=== PATIENT | male | born 1945 | race African-American/Black ===

== ENCOUNTER 2019-02-24 08:02 | Inpatient (IN) ==
[2019-02-24] MEDS ORDERED: SODIUM CHLORIDE 0.9% 1,000 ML IV STA ×4 (08:07→11:48)
[2019-02-24] MEDS ORDERED: ROCURONIUM 100 MG/10 ML VIAL IV ONE (08:20)
[2019-02-24] MEDS ORDERED: ETOMIDATE 20 MG/10 ML VIAL IV ONE (08:20)
[2019-02-24] MEDS ORDERED: DILTIAZEM 50 MG/10 ML VIAL IV STA (08:21)
[2019-02-24 08:24] LABS: Basophils # 0.1 10*3/uL (0.0-0.2); Basophils % 0.2 % (0.0-0.8); Eosinophils % 0.1 % (0.00-10.9); Hematocrit 41.7 VOL% (42.0-52.0); Immature Granulocytes % 0.8 %; Lymphocytes # 0.9 10*3/uL (1.4-4.0); Lymphocytes % 3.7 % (21.2-54.2); Mean Corpuscular HGB Conc 31.2 GM/DL (32-36); Mean Corpuscular Volume 78.7 FL (87-102); Monocytes % 7.8 % (1.7-12.7); Neutrophils % 87.4 % (38.7-73.9); Platelet Count 451 T/CUMM (130-400); Red Cell Distribution Width 21.2 % (9.3-17.3); White Blood Count 24.2 T/CUMM (4-12)
[2019-02-24] MEDS ORDERED: PIPERACILLIN/TAZOBACTAM 3,375 MG in SODIUM CHLORIDE 0.9% 100 ML IV STA (08:26)
[2019-02-24] MEDS ORDERED: DILTIAZEM INJ 100 MG in SODIUM CHLORIDE 0.9% 100 ML IV SCH (08:30)
[2019-02-24 08:32] LABS: INR 1.2; PT Patient Result 12.5 SECS; Partial Thromboplastin Time 21.5 SECS (0-40)
[2019-02-24 08:47] LABS: Band Neutrophils 2 % (0-10); Hypochromasia 1+; Lymphocytes 2 % (20-55); Platelet Estimate Increased; Segmented Neutrophils 87 % (50-85); Total Cells Counted 100
[2019-02-24 08:48] LABS: Microcytosis Slight
[2019-02-24 09:25] LABS: ABG Base Excess 2.4 MMOL/L (-2.5-2.5); ABG HCO3 26.5 MMOL/L (20-26); ABG Oxygen Saturation 99.2 % (95-100); ABG PCO2 38.2 MM HG (35-48); ABG PH 7.447 (7.35-7.45); ABG TCO2 23.2 MMOL/L (23-27)
[2019-02-24 09:29] LABS: Alanine Aminotransferase 121 U/L (16-61); Albumin 2.9 G/DL (3.4-5.0); Alkaline Phosphatase 112 U/L (45-117); Aspartate Amino Transferase 75 U/L (0-37); Blood Urea Nitrogen 60 MG/DL (7-18); Calcium 9.7 MG/DL (8.5-10.1); Glucose 252 MG/DL (74-106); Osmolality,Calculated 321.1 MOS/KG (273-304); Total Protein 8.6 G/DL (6.4-8.3)
[2019-02-24 09:37] LABS: Amorphous Crystals,Urine Occasional /HPF (Few); Apearance,Urine Slightly Hazy (Clear); Bilirubin,Urine Negative (Negative); Blood, Urine Negative (Negative); Glucose,Urine (UA) Negative (Negative); Hyaline Casts,Urine 1 /LPF (0-3); Ketones,Urine 5 mg/dL (Negative); Mucus,Urine Occasional /LPF (Occasional); Nitrite,Urine Negative (Negative); Protein,Urine 100 MG/DL; RBC,Urine 11 /HPF (0-4); Urine Color Yellow (Yellow); Urine Specific Gravity 1.025 (1.001-1.035); Urine Urobilinogen < 2.0 EU/DL (0.2-1.0); WBC,Urine 1 /HPF (0-6)
[2019-02-24] MEDS: PROPOFOL 1,000 MG/100 ML BOTTLE IV SCH ×3 (10:01→22:56)
[2019-02-24] MEDS: dilTIAZem Drip 125 MG/125 ML PREMIX IV SCH (10:03)
[2019-02-24] MEDS ORDERED: GLUCAGON 1 MG VIAL IM PRN (10:22)
[2019-02-24] MEDS ORDERED: DEXTROSE 50% 25 GM/50 ML VIAL IV PRN (10:22)
[2019-02-24] MEDS ORDERED: SODIUM CHLORIDE 0.9% 3,400 ML IV ONE (10:25)
[2019-02-24] MEDS ORDERED: ALBUTEROL/IPRATROPIUM 3 ML NEB RESP TX SCH (10:30)
[2019-02-24] MEDS: SODIUM CHLORIDE 0.45% 1,000 ML IV SCH ×2 (10:59→20:11)
[2019-02-24] MEDS: ENOXAPARIN 40 MG/0.4 ML SYRINGE SUBCUT SCH (11:16)
[2019-02-24] MEDS: AZITHROMYCIN INJ 500 MG in SODIUM CHLORIDE 0.9% 250 ML IV SCH (11:16)
[2019-02-24 12:10] LABS: Troponin I 0.104 NG/ML (0.00-0.045)
[2019-02-24] MEDS: INSULIN REGULAR 100 UNIT/ML SUBCUT SCH ×2 (12:23→17:40)
[2019-02-24] MEDS: ALBUTEROL/IPRATROPIUM 3 ML NEB RESP TX SCH ×2 (13:05→19:14)
[2019-02-24 15:45] LABS: Troponin I 0.096 NG/ML (0.00-0.045)
[2019-02-24] MEDS: PIPERACILLIN/TAZOBACTAM 3,375 MG in SODIUM CHLORIDE 0.9% 100 ML IV SCH (18:01)
[2019-02-25] MEDS: INSULIN REGULAR 100 UNIT/ML SUBCUT SCH ×4 (01:20→18:30)
[2019-02-25] MEDS: PIPERACILLIN/TAZOBACTAM 3,375 MG in SODIUM CHLORIDE 0.9% 100 ML IV SCH ×3 (01:20→17:43)
[2019-02-25] MEDS: ALBUTEROL/IPRATROPIUM 3 ML NEB RESP TX SCH ×4 (01:46→19:00)
[2019-02-25 04:38] LABS: Allen Test Positive; Pt O2 Delivery Device Ventilator
[2019-02-25 04:39] LABS: ABG Base Excess 0.6 MMOL/L (-2.5-2.5); ABG Oxygen Saturation 99.8 % (95-100); ABG PCO2 30.6 MM HG (35-48); ABG PH 7.486 (7.35-7.45)
[2019-02-25 04:45] LABS: Calcium 8.3 MG/DL (8.5-10.1); Osmolality,Calculated 307.1 MOS/KG (273-304); Thyroid Stimulating Hormone 0.425 uIU/ml (0.358-3.74)
[2019-02-25 04:55] LABS: Basophils % 0.2 % (0.0-0.8); Eosinophils % 0.1 % (0.00-10.9); Hematocrit 26.7 VOL% (42.0-52.0); Immature Granulocytes % 0.8 %; Immature Granulocytes Absolute 0.15 #; Lymphocytes # 1.8 10*3/uL (1.4-4.0); Lymphocytes % 9.6 % (21.2-54.2); Mean Corpuscular Volume 79.9 FL (87-102); Mean Platelet Volume 10.9 FL (9.6-12.0); Neutrophils % 81.3 % (38.7-73.9); Red Cell Distribution Width 20.4 % (9.3-17.3); White Blood Count 19.2 T/CUMM (4-12)
[2019-02-25 05:01] LABS: Platelet Count 236 T/CUMM (130-400); Red Blood Count 3.34 MC/CUMM (3.8-5.5)
[2019-02-25] MEDS: SODIUM CHLORIDE 0.45% 1,000 ML IV SCH ×3 (05:16→23:32)
[2019-02-25] MEDS: PROPOFOL 1,000 MG/100 ML BOTTLE IV SCH ×2 (05:19→16:51)
[2019-02-25] MEDS: dilTIAZem Drip 125 MG/125 ML PREMIX IV SCH (09:20)
[2019-02-25] MEDS: ENOXAPARIN 40 MG/0.4 ML SYRINGE SUBCUT SCH (10:18)
[2019-02-25] MEDS: AZITHROMYCIN INJ 500 MG in SODIUM CHLORIDE 0.9% 250 ML IV SCH (11:30)
[2019-02-26] MEDS: INSULIN REGULAR 100 UNIT/ML SUBCUT SCH ×4 (00:18→18:10)
[2019-02-26] MEDS: ALBUTEROL/IPRATROPIUM 3 ML NEB RESP TX SCH ×4 (00:55→19:18)
[2019-02-26] MEDS: PIPERACILLIN/TAZOBACTAM 3,375 MG in SODIUM CHLORIDE 0.9% 100 ML IV SCH ×3 (01:55→18:10)
[2019-02-26] MEDS: PROPOFOL 1,000 MG/100 ML BOTTLE IV SCH ×4 (02:51→22:55)
[2019-02-26 04:03] LABS: Basophils % 0.2 % (0.0-0.8); Eosinophils # 0.1 10*3/uL (0.0-0.87); Eosinophils % 0.4 % (0.00-10.9); Hematocrit 25.6 VOL% (42.0-52.0); Hemoglobin 7.5 GM/DL (14.0-18.0); Immature Granulocytes % 0.8 %; Immature Granulocytes Absolute 0.13 #; Lymphocytes # 1.8 10*3/uL (1.4-4.0); Lymphocytes % 10.9 % (21.2-54.2); Mean Corpuscular HGB Conc 29.3 GM/DL (32-36); Mean Corpuscular Volume 80.8 FL (87-102); Mean Platelet Volume 10.4 FL (9.6-12.0); Monocytes % 6.5 % (1.7-12.7); Neutrophils % 81.2 % (38.7-73.9); Platelet Count 227 T/CUMM (130-400); Red Blood Count 3.17 MC/CUMM (3.8-5.5); Red Cell Distribution Width 20.5 % (9.3-17.3); White Blood Count 16.6 T/CUMM (4-12)
[2019-02-26 04:13] LABS: Calcium 7.9 MG/DL (8.5-10.1); Osmolality,Calculated 295.7 MOS/KG (273-304)
[2019-02-26 04:37] LABS: ABG Base Excess -0.4 MMOL/L (-2.5-2.5); ABG HCO3 24.1 MMOL/L (20-26); ABG Oxygen Saturation 98.9 % (95-100); ABG PCO2 36.9 MM HG (35-48); ABG PH 7.419 (7.35-7.45); ABG TCO2 22.4 MMOL/L (23-27); Allen Test Positive; Pt O2 Delivery Device Ventilator
[2019-02-26 05:11] LABS: Prealbumin 6.8 MG/DL (20-40)
[2019-02-26] MEDS: SODIUM CHLORIDE 0.45% 1,000 ML IV SCH ×2 (08:42→17:29)
[2019-02-26] MEDS: methylPREDNISolone SOD SUC 40 MG/1 ML VIAL IV SCH ×2 (08:42→21:26)
[2019-02-26] MEDS: dilTIAZem Drip 125 MG/125 ML PREMIX IV SCH (08:44)
[2019-02-26] MEDS: AZITHROMYCIN INJ 500 MG in SODIUM CHLORIDE 0.9% 250 ML IV SCH (10:08)
[2019-02-26] MEDS: ENOXAPARIN 40 MG/0.4 ML SYRINGE SUBCUT SCH (12:15)
[2019-02-26] MEDS: FAMOTIDINE 8 MG/ML 50 ML/BOTTLE PER TUBE SCH ×2 (12:29→21:26)
[2019-02-27] MEDS: ALBUTEROL/IPRATROPIUM 3 ML NEB RESP TX SCH ×4 (00:53→19:16)
[2019-02-27] MEDS: INSULIN REGULAR 100 UNIT/ML SUBCUT SCH ×4 (01:53→19:13)
[2019-02-27] MEDS: PIPERACILLIN/TAZOBACTAM 3,375 MG in SODIUM CHLORIDE 0.9% 100 ML IV SCH ×2 (01:53→09:54)
[2019-02-27] MEDS: SODIUM CHLORIDE 0.45% 1,000 ML IV SCH ×3 (03:13→14:42)
[2019-02-27 03:47] LABS: ABG Base Excess -1.4 MMOL/L (-2.5-2.5); ABG HCO3 23.3 MMOL/L (20-26); ABG Oxygen Saturation 99.2 % (95-100); ABG PCO2 36.2 MM HG (35-48); ABG PH 7.409 (7.35-7.45); Allen Test Positive; Pt O2 Delivery Device Ventilator
[2019-02-27] MEDS: fentaNYL INJ 1,250 MCG in SODIUM CHLORIDE 0.9% 225 ML IV PRN ×2 (05:09→17:06)
[2019-02-27 05:12] LABS: Basophils % 0.1 % (0.0-0.8); Hematocrit 23.7 VOL% (42.0-52.0); Hemoglobin 7.2 GM/DL (14.0-18.0); Immature Granulocytes % 1.4 %; Immature Granulocytes Absolute 0.18 #; Lymphocytes # 1.2 10*3/uL (1.4-4.0); Mean Corpuscular HGB Conc 30.4 GM/DL (32-36); Mean Platelet Volume 10.7 FL (9.6-12.0); Monocytes % 3.5 % (1.7-12.7); NRBC # 0.02 10*3/uL; Platelet Count 228 T/CUMM (130-400); Red Blood Count 3.04 MC/CUMM (3.8-5.5); Red Cell Distribution Width 20.4 % (9.3-17.3); White Blood Count 12.5 T/CUMM (4-12)
[2019-02-27 05:38] LABS: Calcium 8.1 MG/DL (8.5-10.1); Osmolality,Calculated 293.1 MOS/KG (273-304)
[2019-02-27] MEDS: PROPOFOL 1,000 MG/100 ML BOTTLE IV SCH (08:30)
[2019-02-27] MEDS: methylPREDNISolone SOD SUC 40 MG/1 ML VIAL IV SCH ×2 (08:31→21:24)
[2019-02-27] MEDS: dilTIAZem Drip 125 MG/125 ML PREMIX IV SCH (08:36)
[2019-02-27] MEDS: FAMOTIDINE 8 MG/ML 50 ML/BOTTLE PER TUBE SCH ×2 (08:39→21:24)
[2019-02-27] MEDS: AZITHROMYCIN INJ 500 MG in SODIUM CHLORIDE 0.9% 250 ML IV SCH (09:54)
[2019-02-27] MEDS ORDERED: FUROSEMIDE 40 MG/4 ML VIAL IV ONE (10:08)
[2019-02-27] MEDS: ENOXAPARIN 40 MG/0.4 ML SYRINGE SUBCUT SCH (10:43)
[2019-02-27] MEDS ORDERED: SODIUM CHLORIDE 0.9% 1,000 ML IV PRN (14:20)
[2019-02-27] MEDS: MEROPENEM 1,000 MG in SODIUM CHLORIDE 0.9% 100 ML IV SCH ×2 (14:52→21:42)
[2019-02-28] MEDS: ALBUTEROL/IPRATROPIUM 3 ML NEB RESP TX SCH ×4 (00:50→19:05)
[2019-02-28] MEDS: INSULIN REGULAR 100 UNIT/ML SUBCUT SCH ×5 (02:23→23:27)
[2019-02-28] MEDS: fentaNYL INJ 1,250 MCG in SODIUM CHLORIDE 0.9% 225 ML IV PRN ×2 (02:55→07:30)
[2019-02-28] MEDS: SODIUM CHLORIDE 0.45% 1,000 ML IV SCH ×2 (02:55→16:16)
[2019-02-28 03:13] LABS: ABG Base Excess -1.5 MMOL/L (-2.5-2.5); ABG Oxygen Saturation 96.8 % (95-100); ABG PCO2 51.1 MM HG (35-48); ABG PH 7.308 (7.35-7.45); ABG PO2 98.6 MM HG (80-95); ABG TCO2 26.6 MMOL/L (23-27); Allen Test Positive; Pt O2 Delivery Device Ventilator
[2019-02-28 05:24] LABS: Basophils % 0.2 % (0.0-0.8); Hematocrit 28.8 VOL% (42.0-52.0); Hemoglobin 8.6 GM/DL (14.0-18.0); Immature Granulocytes % 3.5 %; Immature Granulocytes Absolute 0.58 #; Lymphocytes # 1.1 10*3/uL (1.4-4.0); Lymphocytes % 6.8 % (21.2-54.2); Mean Corpuscular HGB Conc 29.9 GM/DL (32-36); Mean Corpuscular Volume 80.2 FL (87-102); Mean Platelet Volume 10.6 FL (9.6-12.0); NRBC # 0.02 10*3/uL; Neutrophils % 85.5 % (38.7-73.9); Platelet Count 268 T/CUMM (130-400); Red Blood Count 3.59 MC/CUMM (3.8-5.5); Red Cell Distribution Width 20.3 % (9.3-17.3); White Blood Count 16.5 T/CUMM (4-12)
[2019-02-28 05:42] LABS: Calcium 8.3 MG/DL (8.5-10.1); Osmolality,Calculated 288.1 MOS/KG (273-304)
[2019-02-28 06:06] LABS: Band Neutrophils 5 % (0-10); Hypochromasia Slight; Lymphocytes 8 % (20-55); Nucleated Red Blood Cells 0 (0-5); Platelet Estimate Normal; Segmented Neutrophils 82 % (50-85); Total Cells Counted 100
[2019-02-28] MEDS: MEROPENEM 1,000 MG in SODIUM CHLORIDE 0.9% 100 ML IV SCH ×3 (07:10→23:26)
[2019-02-28] MEDS: PROPOFOL 1,000 MG/100 ML BOTTLE IV SCH (07:49)
[2019-02-28] MEDS: dilTIAZem Drip 125 MG/125 ML PREMIX IV SCH ×2 (08:01→21:12)
[2019-02-28] MEDS: FAMOTIDINE 8 MG/ML 50 ML/BOTTLE PER TUBE SCH ×3 (09:00→22:02)
[2019-02-28] MEDS: ENOXAPARIN 40 MG/0.4 ML SYRINGE SUBCUT SCH (09:51)
[2019-02-28] MEDS: methylPREDNISolone SOD SUC 40 MG/1 ML VIAL IV SCH ×2 (09:51→21:08)
[2019-03-01] MEDS: ALBUTEROL/IPRATROPIUM 3 ML NEB RESP TX SCH ×4 (00:40→19:38)
[2019-03-01 05:14] LABS: Basophils # 0.1 10*3/uL (0.0-0.2); Basophils % 0.3 % (0.0-0.8); Hematocrit 31.2 VOL% (42.0-52.0); Hemoglobin 9.6 GM/DL (14.0-18.0); Immature Granulocytes % 7.2 %; Immature Granulocytes Absolute 1.47 #; Lymphocytes # 1.4 10*3/uL (1.4-4.0); Lymphocytes % 6.9 % (21.2-54.2); Mean Corpuscular HGB Conc 30.8 GM/DL (32-36); Mean Corpuscular Volume 78.8 FL (87-102); Mean Platelet Volume 10.8 FL (9.6-12.0); Monocytes % 5.9 % (1.7-12.7); NRBC # 0.15 10*3/uL; Neutrophils % 79.7 % (38.7-73.9); Platelet Count 347 T/CUMM (130-400); Red Blood Count 3.96 MC/CUMM (3.8-5.5); Red Cell Distribution Width 20.5 % (9.3-17.3); White Blood Count 20.5 T/CUMM (4-12)
[2019-03-01 05:25] LABS: Calcium 8.2 MG/DL (8.5-10.1)
[2019-03-01] MEDS: INSULIN REGULAR 100 UNIT/ML SUBCUT SCH ×4 (06:03→23:53)
[2019-03-01] MEDS: MEROPENEM 1,000 MG in SODIUM CHLORIDE 0.9% 100 ML IV SCH ×3 (06:04→21:38)
[2019-03-01 06:08] LABS: Band Neutrophils 1 % (0-10); Lymphocytes 8 % (20-55); Myelocytes 2 %; Segmented Neutrophils 86 % (50-85); Total Cells Counted 100
[2019-03-01 06:09] LABS: Anisocytosis 2+; Hypochromasia Slight; Microcytosis 1+; Polychromasia Slight
[2019-03-01 06:10] LABS: Platelet Estimate Normal; Target Cells Slight
[2019-03-01] MEDS: SODIUM CHLORIDE 0.45% 1,000 ML IV SCH ×2 (07:30→17:44)
[2019-03-01] MEDS: DORNASE ALFA 2.5 MG/2.5 ML VIAL RESP TX SCH ×2 (08:28→19:38)
[2019-03-01] MEDS: dilTIAZem Drip 125 MG/125 ML PREMIX IV SCH (09:15)
[2019-03-01] MEDS: PROPOFOL 1,000 MG/100 ML BOTTLE IV SCH (09:26)
[2019-03-01] MEDS: methylPREDNISolone SOD SUC 40 MG/1 ML VIAL IV SCH ×2 (09:54→20:44)
[2019-03-01] MEDS: ENOXAPARIN 40 MG/0.4 ML SYRINGE SUBCUT SCH (09:54)
[2019-03-01] MEDS: DILTIAZEM 60 MG TABLET PO SCH ×4 (09:54→20:48)
[2019-03-01] MEDS: FAMOTIDINE 8 MG/ML 50 ML/BOTTLE PER TUBE SCH ×2 (09:55→21:31)
[2019-03-02] MEDS: ALBUTEROL/IPRATROPIUM 3 ML NEB RESP TX SCH ×4 (01:37→20:24)
[2019-03-02 04:55] LABS: Basophils # 0.1 10*3/uL (0.0-0.2); Basophils % 0.5 % (0.0-0.8); Hematocrit 30.6 VOL% (42.0-52.0); Hemoglobin 9.3 GM/DL (14.0-18.0); Immature Granulocytes Absolute 1.16 #; Lymphocytes # 1.6 10*3/uL (1.4-4.0); Lymphocytes % 8.2 % (21.2-54.2); Mean Corpuscular HGB Conc 30.4 GM/DL (32-36); Mean Corpuscular Volume 79.1 FL (87-102); Mean Platelet Volume 10.4 FL (9.6-12.0); Monocytes % 5.7 % (1.7-12.7); NRBC # 0.11 10*3/uL; Neutrophils % 79.6 % (38.7-73.9); Platelet Count 345 T/CUMM (130-400); Red Blood Count 3.87 MC/CUMM (3.8-5.5); Red Cell Distribution Width 20.9 % (9.3-17.3); White Blood Count 19.2 T/CUMM (4-12)
[2019-03-02 05:05] LABS: Calcium 8.1 MG/DL (8.5-10.1); Osmolality,Calculated 297.3 MOS/KG (273-304)
[2019-03-02 05:38] LABS: Band Neutrophils 2 % (0-10); Lymphocytes 4 % (20-55); Myelocytes 2 %; Nucleated Red Blood Cells 1 (0-5); Segmented Neutrophils 86 % (50-85); Total Cells Counted 100
[2019-03-02 05:39] LABS: Acanthocytes Few; Anisocytosis 1+; Hypochromasia 1+; Platelet Estimate Adequate
[2019-03-02] MEDS: INSULIN REGULAR 100 UNIT/ML SUBCUT SCH ×4 (05:46→23:42)
[2019-03-02] MEDS: MEROPENEM 1,000 MG in SODIUM CHLORIDE 0.9% 100 ML IV SCH ×3 (05:51→22:57)
[2019-03-02] MEDS: SODIUM CHLORIDE 0.45% 1,000 ML IV SCH (06:18)
[2019-03-02] MEDS: DORNASE ALFA 2.5 MG/2.5 ML VIAL RESP TX SCH ×2 (07:18→20:24)
[2019-03-02] MEDS: FAMOTIDINE 8 MG/ML 50 ML/BOTTLE PER TUBE SCH ×2 (09:57→21:44)
[2019-03-02] MEDS: ENOXAPARIN 40 MG/0.4 ML SYRINGE SUBCUT SCH (09:57)
[2019-03-02] MEDS: DILTIAZEM 60 MG TABLET PO SCH ×4 (09:57→21:41)
[2019-03-02] MEDS: methylPREDNISolone SOD SUC 40 MG/1 ML VIAL IV SCH (10:59)
[2019-03-02] MEDS: PROPOFOL 1,000 MG/100 ML BOTTLE IV SCH (10:59)
[2019-03-02] MEDS: predniSONE 10 MG TABLET PEG SCH (11:02)
[2019-03-03] MEDS: ALBUTEROL/IPRATROPIUM 3 ML NEB RESP TX SCH ×4 (01:42→19:57)
[2019-03-03 05:16] LABS: Basophils # 0.1 10*3/uL (0.0-0.2); Basophils % 0.4 % (0.0-0.8); Eosinophils % 0.2 % (0.00-10.9); Hematocrit 31.5 VOL% (42.0-52.0); Hemoglobin 9.8 GM/DL (14.0-18.0); Immature Granulocytes % 6.6 %; Immature Granulocytes Absolute 1.42 #; Lymphocytes # 2.3 10*3/uL (1.4-4.0); Lymphocytes % 10.7 % (21.2-54.2); Mean Corpuscular HGB Conc 31.1 GM/DL (32-36); Mean Corpuscular Volume 77.6 FL (87-102); Mean Platelet Volume 10.7 FL (9.6-12.0); NRBC # 0.18 10*3/uL; Neutrophils % 73.1 % (38.7-73.9); Platelet Count 369 T/CUMM (130-400); Red Blood Count 4.06 MC/CUMM (3.8-5.5); Red Cell Distribution Width 21.2 % (9.3-17.3); White Blood Count 21.5 T/CUMM (4-12)
[2019-03-03 05:25] LABS: Calcium 8.7 MG/DL (8.5-10.1); Osmolality,Calculated 293.4 MOS/KG (273-304)
[2019-03-03] MEDS: MEROPENEM 1,000 MG in SODIUM CHLORIDE 0.9% 100 ML IV SCH ×3 (06:04→22:29)
[2019-03-03] MEDS: INSULIN REGULAR 100 UNIT/ML SUBCUT SCH ×4 (06:04→23:36)
[2019-03-03 06:18] LABS: Band Neutrophils 1 % (0-10); Lymphocytes 13 % (20-55); Metamyelocytes 1 %; Myelocytes 1 %; Segmented Neutrophils 78 % (50-85); Total Cells Counted 100
[2019-03-03 06:19] LABS: Anisocytosis 1+; Microcytosis 1+; Polychromasia Few; Target Cells 1+
[2019-03-03 06:20] LABS: Hypochromasia Slight; Platelet Estimate Normal
[2019-03-03] MEDS: DORNASE ALFA 2.5 MG/2.5 ML VIAL RESP TX SCH ×2 (08:18→19:57)
[2019-03-03] MEDS: DILTIAZEM 60 MG TABLET PO SCH ×4 (09:45→20:02)
[2019-03-03] MEDS: ENOXAPARIN 40 MG/0.4 ML SYRINGE SUBCUT SCH (09:46)
[2019-03-03] MEDS: predniSONE 10 MG TABLET PEG SCH (09:46)
[2019-03-03] MEDS: FAMOTIDINE 8 MG/ML 50 ML/BOTTLE PER TUBE SCH ×2 (09:48→20:03)
[2019-03-04] MEDS: ALBUTEROL/IPRATROPIUM 3 ML NEB RESP TX SCH ×4 (01:35→21:17)
[2019-03-04 05:14] LABS: Basophils # 0.1 10*3/uL (0.0-0.2); Basophils % 0.6 % (0.0-0.8); Eosinophils # 0.1 10*3/uL (0.0-0.87); Eosinophils % 0.3 % (0.00-10.9); Hematocrit 37.4 VOL% (42.0-52.0); Hemoglobin 11.2 GM/DL (14.0-18.0); Immature Granulocytes % 7.4 %; Immature Granulocytes Absolute 1.67 #; Lymphocytes # 1.7 10*3/uL (1.4-4.0); Lymphocytes % 7.7 % (21.2-54.2); Mean Corpuscular HGB Conc 29.9 GM/DL (32-36); Mean Corpuscular Volume 78.4 FL (87-102); Mean Platelet Volume 9.7 FL (9.6-12.0); Monocytes % 7.7 % (1.7-12.7); NRBC # 0.14 10*3/uL; Neutrophils % 76.3 % (38.7-73.9); Platelet Count 372 T/CUMM (130-400); Red Blood Count 4.77 MC/CUMM (3.8-5.5); Red Cell Distribution Width 22.1 % (9.3-17.3); White Blood Count 22.5 T/CUMM (4-12)
[2019-03-04 05:34] LABS: Albumin 2.3 G/DL (3.4-5.0); Bilirubin,Total 0.8 MG/DL (0.2-1.0); Calcium 8.9 MG/DL (8.5-10.1); Total Protein 6.8 G/DL (6.4-8.3)
[2019-03-04] MEDS: MEROPENEM 1,000 MG in SODIUM CHLORIDE 0.9% 100 ML IV SCH ×2 (05:46→15:43)
[2019-03-04] MEDS: INSULIN REGULAR 100 UNIT/ML SUBCUT SCH ×3 (05:47→18:16)
[2019-03-04 05:58] LABS: Eosinophils 2 % (0-10); Hypochromasia 1+; Lymphocytes 4 % (20-55); Macrocytosis Slight; Nucleated Red Blood Cells 1 (0-5); Platelet Estimate Adequate; Polychromasia Slight; Segmented Neutrophils 89 % (50-85); Total Cells Counted 100
[2019-03-04] MEDS: DORNASE ALFA 2.5 MG/2.5 ML VIAL RESP TX SCH ×2 (07:19→21:23)
[2019-03-04] MEDS: CIPROFLOXACIN 500 MG TABLET PO SCH ×2 (09:46→22:00)
[2019-03-04] MEDS: predniSONE 10 MG TABLET PEG SCH (09:46)
[2019-03-04] MEDS: ENOXAPARIN 40 MG/0.4 ML SYRINGE SUBCUT SCH (09:46)
[2019-03-04] MEDS: DILTIAZEM 60 MG TABLET PO SCH (09:46)
[2019-03-04] MEDS: FAMOTIDINE 8 MG/ML 50 ML/BOTTLE PER TUBE SCH ×2 (09:55→22:01)
[2019-03-04] MEDS: DILTIAZEM 90 MG TABLET PO SCH ×2 (15:43→22:00)
[2019-03-05] MEDS: MEROPENEM 1,000 MG in SODIUM CHLORIDE 0.9% 100 ML IV SCH ×2 (00:25→06:27)
[2019-03-05] MEDS: ALBUTEROL/IPRATROPIUM 3 ML NEB RESP TX SCH ×2 (00:57→07:35)
[2019-03-05] MEDS: INSULIN REGULAR 100 UNIT/ML SUBCUT SCH ×3 (01:38→12:46)
[2019-03-05] MEDS: DORNASE ALFA 2.5 MG/2.5 ML VIAL RESP TX SCH (07:44)
[2019-03-05] MEDS: predniSONE 10 MG TABLET PEG SCH (09:27)
[2019-03-05] MEDS: CIPROFLOXACIN 500 MG TABLET PO SCH (09:27)
[2019-03-05] MEDS: FAMOTIDINE 8 MG/ML 50 ML/BOTTLE PER TUBE SCH (09:27)
[2019-03-05] MEDS: DILTIAZEM 90 MG TABLET PO SCH (09:27)
[2019-03-05] MEDS: ENOXAPARIN 40 MG/0.4 ML SYRINGE SUBCUT SCH (09:31)
[2019-03-05 12:20] VITALS: BP 133/65
== END 2019-03-05 12:49 | DRG 870 ==
LOC: EDBD → EDUNIT# → N.ED 08:02 → N.EDINP 10:08 → SUPCPDRO 10:08 → SUATTDRO 10:08 → N.EDINP 19:24 → N.ICU 20:13 → N.5E 03-04 17:37
PROVIDERS: ADMIT Hospitalist; ATTEND Family Medicine

== ENCOUNTER 2019-03-20 12:25 | Inpatient (IN) ==
[2019-03-20] MEDS ORDERED: SODIUM CHLORIDE 0.9% 1,000 ML IV STA (12:38)
[2019-03-20] MEDS ORDERED: ETOMIDATE 20 MG/10 ML VIAL IV ONE (12:56)
[2019-03-20] MEDS ORDERED: ROCURONIUM 100 MG/10 ML VIAL IV ONE (12:56)
[2019-03-20] MEDS ORDERED: LEVOFLOXACIN INJ 500 MG in PREMIX 1 EACH IV STA (13:13)
[2019-03-20 13:30] LABS: Basophils # 0.1 10*3/uL (0.0-0.2); Basophils % 0.3 % (0.0-0.8); Hematocrit 41.4 VOL% (42.0-52.0); Hemoglobin 12.1 GM/DL (14.0-18.0); Immature Granulocytes % 1.1 %; Immature Granulocytes Absolute 0.19 #; Lymphocytes # 1.4 10*3/uL (1.4-4.0); Lymphocytes % 8.3 % (21.2-54.2); Mean Corpuscular HGB Conc 29.2 GM/DL (32-36); Mean Corpuscular Volume 79.9 FL (87-102); Monocytes % 9.1 % (1.7-12.7); Neutrophils % 81.2 % (38.7-73.9); Platelet Count 339 T/CUMM (130-400); Red Blood Count 5.18 MC/CUMM (3.8-5.5); White Blood Count 17.2 T/CUMM (4-12)
[2019-03-20 13:39] LABS: INR 1.2; PT Patient Result 13.5 SECS; Partial Thromboplastin Time 26.3 SECS (0-40)
[2019-03-20 13:51] LABS: Albumin 2.6 G/DL (3.4-5.0); Bilirubin,Total 0.4 MG/DL (0.2-1.0); Calcium 8.8 MG/DL (8.5-10.1); Osmolality,Calculated 322.1 MOS/KG (273-304); Total Protein 7.8 G/DL (6.4-8.3)
[2019-03-20 13:53] LABS: Band Neutrophils 9 % (0-10); Lymphocytes 10 % (20-55); Microcytosis Slight; Nucleated Red Blood Cells 1 (0-5); Platelet Estimate Normal; Polychromasia Slight; Segmented Neutrophils 78 % (50-85); Total Cells Counted 100
[2019-03-20] MEDS ORDERED: MIDAZOLAM 2 MG/2 ML VIAL IV ONE (14:00)
[2019-03-20] MEDS ORDERED: MIDAZOLAM 10 MG/2 ML VIAL ONE (14:03)
[2019-03-20 14:27] LABS: ABG Base Excess -0.3 MMOL/L (-2.5-2.5); ABG HCO3 24.1 MMOL/L (20-26); ABG Oxygen Saturation 95.9 % (95-100); ABG PCO2 40.9 MM HG (35-48); ABG PH 7.389 (7.35-7.45); ABG PO2 91.2 MM HG (80-95); ABG TCO2 20.6 MMOL/L (23-27)
[2019-03-20 14:56] LABS: Apearance,Urine Slightly Hazy (Clear); Bilirubin,Urine Negative (Negative); Blood, Urine Small mg/dL (Negative); Glucose,Urine (UA) Negative (Negative); Ketones,Urine Negative (Negative); Mucus,Urine Occasional /LPF (Occasional); Nitrite,Urine Negative (Negative); Protein,Urine 100 MG/DL; RBC,Urine 19 /HPF (0-4); Squamous Epithelial Cell,Urine Occasional /HPF (0-10); Urine Color Yellow (Yellow); Urine Specific Gravity 1.013 (1.001-1.035); Urine Urobilinogen < 2.0 EU/DL (0.2-1.0); WBC,Urine 24 /HPF (0-6)
[2019-03-20] MEDS ORDERED: PROPOFOL 1,000 MG/100 ML BOTTLE IV ONE (16:08)
[2019-03-20] MEDS ORDERED: ONDANSETRON 4 MG/2 ML VIAL IV PRN (16:14)
[2019-03-20] MEDS ORDERED: MORPHINE 4 MG/1 ML VIAL IV PRN (16:14)
[2019-03-20] MEDS: PROPOFOL 1,000 MG/100 ML BOTTLE IV SCH (16:30)
[2019-03-20] MEDS: SODIUM CHLORIDE 0.9% 1,000 ML IV SCH (16:30)
[2019-03-20] MEDS ORDERED: cefTRIAXone 2,000 MG in SYRINGE 1 EACH IV SCH (17:00)
[2019-03-20] MEDS: FAMOTIDINE 20 MG/2 ML VIAL IV SCH (17:48)
[2019-03-20] MEDS: ENOXAPARIN 30 MG/0.3 ML SYRINGE SUBCUT SCH (17:48)
[2019-03-20] MEDS: cefTRIAXone 2,000 MG in SYRINGE 1 EACH IV SCH (18:58)
[2019-03-21] MEDS: SODIUM CHLORIDE 0.9% 1,000 ML IV SCH ×3 (02:31→22:14)
[2019-03-21 03:24] LABS: Basophils % 0.1 % (0.0-0.8); Hematocrit 33.2 VOL% (42.0-52.0); Immature Granulocytes % 0.9 %; Immature Granulocytes Absolute 0.15 #; Lymphocytes # 2.3 10*3/uL (1.4-4.0); Lymphocytes % 13.9 % (21.2-54.2); Mean Corpuscular HGB Conc 29.8 GM/DL (32-36); Mean Corpuscular Volume 79.6 FL (87-102); Mean Platelet Volume 11.1 FL (9.6-12.0); Monocytes % 8.6 % (1.7-12.7); Neutrophils % 76.5 % (38.7-73.9); Platelet Count 218 T/CUMM (130-400); Red Blood Count 4.17 MC/CUMM (3.8-5.5); Red Cell Distribution Width 19.6 % (9.3-17.3); White Blood Count 16.4 T/CUMM (4-12)
[2019-03-21 03:39] LABS: Calcium 8.3 MG/DL (8.5-10.1); Osmolality,Calculated 328.6 MOS/KG (273-304)
[2019-03-21 04:10] LABS: ABG Base Excess -0.2 MMOL/L (-2.5-2.5); ABG HCO3 24.3 MMOL/L (20-26); ABG PCO2 33.5 MM HG (35-48); ABG PH 7.449 (7.35-7.45); ABG TCO2 21.1 MMOL/L (23-27)
[2019-03-21] MEDS: FAMOTIDINE 20 MG/2 ML VIAL IV SCH ×2 (04:10→16:22)
[2019-03-21] MEDS: PROPOFOL 1,000 MG/100 ML BOTTLE IV SCH ×2 (04:12→16:33)
[2019-03-21 04:14] LABS: Hemoglobin 9.9 GM/DL (14.0-18.0)
[2019-03-21] MEDS: ENOXAPARIN 30 MG/0.3 ML SYRINGE SUBCUT SCH (16:29)
[2019-03-21] MEDS: cefTRIAXone 2,000 MG in SYRINGE 1 EACH IV SCH (18:19)
[2019-03-22] MEDS: PROPOFOL 1,000 MG/100 ML BOTTLE IV SCH ×3 (00:35→18:24)
[2019-03-22] MEDS: FAMOTIDINE 20 MG/2 ML VIAL IV SCH ×2 (05:00→16:40)
[2019-03-22 05:07] LABS: Basophils % 0.1 % (0.0-0.8); Eosinophils % 0.3 % (0.00-10.9); Hematocrit 28.6 VOL% (42.0-52.0); Hemoglobin 8.3 GM/DL (14.0-18.0); Immature Granulocytes % 1.6 %; Lymphocytes % 15.9 % (21.2-54.2); Mean Corpuscular Volume 81.7 FL (87-102); Mean Platelet Volume 12.4 FL (9.6-12.0); Monocytes % 7.3 % (1.7-12.7); NRBC # 0.02 10*3/uL; Neutrophils % 74.8 % (38.7-73.9); Platelet Count 203 T/CUMM (130-400); Red Cell Distribution Width 19.9 % (9.3-17.3); White Blood Count 12.4 T/CUMM (4-12)
[2019-03-22 05:21] LABS: Calcium 8.3 MG/DL (8.5-10.1); Osmolality,Calculated 321.6 MOS/KG (273-304)
[2019-03-22 06:04] LABS: ABG Base Excess -0.5 MMOL/L (-2.5-2.5); ABG Oxygen Saturation 99.1 % (95-100); ABG PCO2 36.8 MM HG (35-48); ABG PH 7.417 (7.35-7.45)
[2019-03-22] MEDS ORDERED: CIPROFLOXACIN 100 MG/ML 100 ML/BOTTLE PEG SCH (09:00)
[2019-03-22] MEDS: SODIUM CHLORIDE 0.9% 1,000 ML IV SCH ×2 (10:35→18:27)
[2019-03-22] MEDS: POTASSIUM CHLORIDE 20 MEQ/15 ML UDCUP PER TUBE SCH ×3 (10:54→16:41)
[2019-03-22] MEDS: ENOXAPARIN 30 MG/0.3 ML SYRINGE SUBCUT SCH (16:41)
[2019-03-22] MEDS ORDERED: cefTRIAXone 1,000 MG VIAL ONE (18:37)
[2019-03-22] MEDS: cefTAZidime 1,000 MG in SYRINGE 1 EACH IV SCH (21:08)
[2019-03-22] MEDS: SODIUM CHLORIDE 0.9% IV SCH (21:16)
[2019-03-22] MEDS: GENTAMICIN IV SCH (21:16)
[2019-03-23] MEDS: cefTAZidime 1,000 MG in SYRINGE 1 EACH IV SCH ×3 (04:40→20:00)
[2019-03-23 04:47] LABS: Basophils % 0.2 % (0.0-0.8); Eosinophils # 0.1 10*3/uL (0.0-0.87); Hematocrit 28.1 VOL% (42.0-52.0); Hemoglobin 8.2 GM/DL (14.0-18.0); Immature Granulocytes % 3.6 %; Lymphocytes # 1.7 10*3/uL (1.4-4.0); Lymphocytes % 15.1 % (21.2-54.2); Mean Corpuscular HGB Conc 29.2 GM/DL (32-36); Mean Corpuscular Volume 80.3 FL (87-102); Mean Platelet Volume 10.9 FL (9.6-12.0); Monocytes % 6.8 % (1.7-12.7); NRBC # 0.03 10*3/uL; Neutrophils % 73.3 % (38.7-73.9); Platelet Count 196 T/CUMM (130-400); Red Cell Distribution Width 19.6 % (9.3-17.3)
[2019-03-23 04:48] LABS: ABG Base Excess -1.2 MMOL/L (-2.5-2.5); ABG HCO3 23.4 MMOL/L (20-26); ABG Oxygen Saturation 99.3 % (95-100); ABG PCO2 38.1 MM HG (35-48); ABG PH 7.396 (7.35-7.45); ABG TCO2 21.8 MMOL/L (23-27)
[2019-03-23 05:01] LABS: Calcium 8.1 MG/DL (8.5-10.1)
[2019-03-23] MEDS: PROPOFOL 1,000 MG/100 ML BOTTLE IV SCH ×4 (05:02→19:26)
[2019-03-23] MEDS: SODIUM CHLORIDE 0.9% 1,000 ML IV SCH ×2 (07:00→17:46)
[2019-03-23] MEDS ORDERED: MAGNESIUM SULF RIDER 2 GM in PREMIX 1 EACH IV ONE (08:18)
[2019-03-23] MEDS ORDERED: FUROSEMIDE 40 MG/4 ML VIAL IV ONE (08:20)
[2019-03-23] MEDS: ENOXAPARIN 40 MG/0.4 ML SYRINGE SUBCUT SCH (10:03)
[2019-03-23] MEDS: RANITIDINE 150 MG/10 ML 30 ML BOTTLE PEG SCH ×2 (10:04→21:30)
[2019-03-23] MEDS: SODIUM CHLORIDE 0.9% IV SCH (21:30)
[2019-03-23] MEDS: GENTAMICIN IV SCH (21:30)
[2019-03-24] MEDS: PROPOFOL 1,000 MG/100 ML BOTTLE IV SCH ×4 (01:01→23:59)
[2019-03-24] MEDS: SODIUM CHLORIDE 0.9% 1,000 ML IV SCH ×2 (03:36→21:46)
[2019-03-24] MEDS: cefTAZidime 1,000 MG in SYRINGE 1 EACH IV SCH ×3 (04:30→21:47)
[2019-03-24 04:49] LABS: ABG Base Excess 1.5 MMOL/L (-2.5-2.5); ABG HCO3 25.8 MMOL/L (20-26); ABG Oxygen Saturation 98.6 % (95-100); ABG PCO2 39.8 MM HG (35-48); ABG PH 7.423 (7.35-7.45); ABG TCO2 24.1 MMOL/L (23-27)
[2019-03-24 05:10] LABS: Calcium 8.1 MG/DL (8.5-10.1); Osmolality,Calculated 306.7 MOS/KG (273-304)
[2019-03-24 05:39] LABS: Basophils % 0.3 % (0.0-0.8); Eosinophils # 0.1 10*3/uL (0.0-0.87); Eosinophils % 1.5 % (0.00-10.9); Hematocrit 27.4 VOL% (42.0-52.0); Immature Granulocytes % 5.1 %; Immature Granulocytes Absolute 0.46 #; Lymphocytes # 1.6 10*3/uL (1.4-4.0); Lymphocytes % 17.9 % (21.2-54.2); Mean Corpuscular HGB Conc 29.9 GM/DL (32-36); Mean Corpuscular Volume 79.4 FL (87-102); Mean Platelet Volume 11.1 FL (9.6-12.0); Monocytes % 7.3 % (1.7-12.7); NRBC # 0.04 10*3/uL; Neutrophils % 67.9 % (38.7-73.9); Platelet Count 193 T/CUMM (130-400); Red Blood Count 3.45 MC/CUMM (3.8-5.5); Red Cell Distribution Width 19.7 % (9.3-17.3); White Blood Count 9.1 T/CUMM (4-12)
[2019-03-24 05:40] LABS: Hemoglobin 8.2 GM/DL (14.0-18.0)
[2019-03-24 05:50] LABS: Band Neutrophils 2 % (0-10); Eosinophils 1 % (0-10); Hypochromasia 1+; Lymphocytes 17 % (20-55); Nucleated Red Blood Cells 1 (0-5); Platelet Estimate Adequate; Segmented Neutrophils 68 % (50-85); Total Cells Counted 100
[2019-03-24] MEDS: ENOXAPARIN 40 MG/0.4 ML SYRINGE SUBCUT SCH (07:23)
[2019-03-24] MEDS: INSULIN GLARGINE 100 UNIT/ML SUBCUT SCH (09:26)
[2019-03-24] MEDS: RANITIDINE 150 MG/10 ML 30 ML BOTTLE PEG SCH ×2 (09:27→21:47)
[2019-03-24] MEDS ORDERED: DEXTROSE 50% 25 GM/50 ML VIAL IV PRN (11:38)
[2019-03-24] MEDS ORDERED: GLUCAGON 1 MG VIAL IM PRN (11:38)
[2019-03-24] MEDS: INSULIN LISPRO 100 UNIT/ML SUBCUT SCH ×4 (12:01→23:58)
[2019-03-24] MEDS ORDERED: SODIUM CHLORIDE 0.9% IV SCH (21:00)
[2019-03-24] MEDS ORDERED: GENTAMICIN IV SCH (21:00)
[2019-03-25 03:37] LABS: ABG Base Excess 2.6 MMOL/L (-2.5-2.5); ABG HCO3 26.3 MMOL/L (20-26); ABG Oxygen Saturation 96.1 % (95-100); ABG PCO2 36.4 MM HG (35-48); ABG PH 7.476 (7.35-7.45); ABG PO2 86.5 MM HG (80-95); ABG TCO2 27.4 MMOL/L (23-27)
[2019-03-25 04:05] LABS: Prealbumin 10.2 MG/DL (20-40)
[2019-03-25] MEDS: cefTAZidime 1,000 MG in SYRINGE 1 EACH IV SCH ×3 (05:15→21:24)
[2019-03-25] MEDS: INSULIN LISPRO 100 UNIT/ML SUBCUT SCH ×5 (05:15→21:24)
[2019-03-25] MEDS: PROPOFOL 1,000 MG/100 ML BOTTLE IV SCH ×4 (06:13→21:25)
[2019-03-25 08:08] LABS: Basophils % 0.2 % (0.0-0.8); Eosinophils # 0.1 10*3/uL (0.0-0.87); Eosinophils % 0.9 % (0.00-10.9); Hematocrit 26.7 VOL% (42.0-52.0); Hemoglobin 8.1 GM/DL (14.0-18.0); Immature Granulocytes Absolute 0.69 #; Lymphocytes # 2.1 10*3/uL (1.4-4.0); Lymphocytes % 15.3 % (21.2-54.2); Mean Corpuscular HGB Conc 30.3 GM/DL (32-36); Mean Corpuscular Volume 77.6 FL (87-102); Mean Platelet Volume 10.4 FL (9.6-12.0); Monocytes % 6.5 % (1.7-12.7); NRBC # 0.03 10*3/uL; Neutrophils % 72.1 % (38.7-73.9); Platelet Count 224 T/CUMM (130-400); Red Blood Count 3.44 MC/CUMM (3.8-5.5); Red Cell Distribution Width 19.4 % (9.3-17.3); White Blood Count 13.8 T/CUMM (4-12)
[2019-03-25] MEDS: INSULIN GLARGINE 100 UNIT/ML SUBCUT SCH (08:20)
[2019-03-25] MEDS: ENOXAPARIN 40 MG/0.4 ML SYRINGE SUBCUT SCH (08:20)
[2019-03-25] MEDS: SODIUM CHLORIDE 0.9% 1,000 ML IV SCH (08:24)
[2019-03-25 08:28] LABS: Band Neutrophils 2 % (0-10); Eosinophils 1 % (0-10); Lymphocytes 9 % (20-55); Nucleated Red Blood Cells 1 (0-5); Segmented Neutrophils 80 % (50-85); Total Cells Counted 100
[2019-03-25 08:29] LABS: Platelet Estimate Adequate
[2019-03-25 08:34] LABS: Calcium 8.2 MG/DL (8.5-10.1); Osmolality,Calculated 291.7 MOS/KG (273-304)
[2019-03-25 08:35] LABS: Hypochromasia 1+
[2019-03-25] MEDS ORDERED: MAGNESIUM SULF RIDER 4 GM in PREMIX 1 EACH IV PRN (09:02)
[2019-03-25] MEDS ORDERED: MAGNESIUM SULF RIDER 2 GM in PREMIX 1 EACH IV PRN (09:02)
[2019-03-25] MEDS: RANITIDINE 150 MG/10 ML 30 ML BOTTLE PEG SCH ×2 (10:16→21:25)
[2019-03-26] MEDS: INSULIN LISPRO 100 UNIT/ML SUBCUT SCH ×5 (01:01→16:33)
[2019-03-26 04:39] LABS: ABG Base Excess 5.8 MMOL/L (-2.5-2.5); ABG HCO3 29.7 MMOL/L (20-26); ABG Oxygen Saturation 98.4 % (95-100); ABG PCO2 42.4 MM HG (35-48); ABG PH 7.461 (7.35-7.45); ABG PO2 98.9 MM HG (80-95); ABG TCO2 28.1 MMOL/L (23-27)
[2019-03-26] MEDS: cefTAZidime 1,000 MG in SYRINGE 1 EACH IV SCH ×2 (04:45→11:40)
[2019-03-26 04:53] LABS: Basophils % 0.2 % (0.0-0.8); Eosinophils # 0.1 10*3/uL (0.0-0.87); Eosinophils % 0.9 % (0.00-10.9); Hematocrit 25.6 VOL% (42.0-52.0); Hemoglobin 7.6 GM/DL (14.0-18.0); Immature Granulocytes % 6.5 %; Lymphocytes # 2.4 10*3/uL (1.4-4.0); Lymphocytes % 17.1 % (21.2-54.2); Mean Corpuscular HGB Conc 29.7 GM/DL (32-36); Mean Platelet Volume 10.8 FL (9.6-12.0); Monocytes % 7.6 % (1.7-12.7); NRBC # 0.03 10*3/uL; Neutrophils % 67.7 % (38.7-73.9); Platelet Count 238 T/CUMM (130-400); Red Blood Count 3.28 MC/CUMM (3.8-5.5); Red Cell Distribution Width 19.7 % (9.3-17.3); White Blood Count 13.9 T/CUMM (4-12)
[2019-03-26 05:13] LABS: Alanine Aminotransferase 42 U/L (16-61); Albumin 1.6 G/DL (3.4-5.0); Alkaline Phosphatase 113 U/L (45-117); Aspartate Amino Transferase 32 U/L (0-37); Bilirubin,Total < 0.39 MG/DL (0.2-1.0); Blood Urea Nitrogen 17 MG/DL (7-18); Calcium 8.5 MG/DL (8.5-10.1); Glucose 108 MG/DL (74-106); Osmolality,Calculated 288.8 MOS/KG (273-304); Total Protein 5.7 G/DL (6.4-8.3)
[2019-03-26 05:14] LABS: Lymphocytes 22 % (20-55); Nucleated Red Blood Cells 1 (0-5); Platelet Estimate Adequate; Segmented Neutrophils 73 % (50-85); Total Cells Counted 100
[2019-03-26 05:15] LABS: Hypochromasia 1+
[2019-03-26] MEDS: PROPOFOL 1,000 MG/100 ML BOTTLE IV SCH ×2 (06:13→14:40)
[2019-03-26] MEDS: ENOXAPARIN 40 MG/0.4 ML SYRINGE SUBCUT SCH (08:35)
[2019-03-26] MEDS: RANITIDINE 150 MG/10 ML 30 ML BOTTLE PEG SCH (08:35)
[2019-03-26] MEDS: INSULIN GLARGINE 100 UNIT/ML SUBCUT SCH (08:35)
[2019-03-26 20:10] VITALS: BP 140/54
== END 2019-03-26 19:24 | DRG 870 ==
LOC: N.ED 12:25 → N.EDINP 13:25 → SUATTDRO 13:25 → N.CC 15:50 → N.ICU 03-22 10:24
PROVIDERS: ADMIT Internal Medicine; ATTEND Family Medicine